=== PATIENT | male | born 1935 | race Caucasian/White ===

== ENCOUNTER → 2016-02-27 | Outpatient (REF) | payer MEDICARE ==
[2016-02-27 18:23] LABS: ALBUMIN 3.9 GM/DL (3.2-5.2); ALKALINE PHOSPHATASE 77 U/L (45-117); ALT/SGPT 23 U/L (12-78); ANION GAP 7 MEQ/L (8-16); AST/SGOT 17 U/L (15-37); BILIRUBIN,TOTAL 0.6 MG/DL (0.2-1.0); BLOOD UREA NITROGEN 16 MG/DL (7-18); CALCIUM LEVEL 9.1 MG/DL (8.8-10.2); CARBON DIOXIDE LEVEL 28 MEQ/L (21-32); CHLORIDE LEVEL 109 MEQ/L (98-107); CHOLESTEROL LEVEL 169 MG/DL (<200); CREATININE FOR GFR 1.18 MG/DL (0.70-1.30); GLOMERULAR FILTRATION RATE > 60.0 (>42); GLUCOSE, FASTING 105 MG/DL (83-110); POTASSIUM SERUM 4.4 MEQ/L (3.5-5.1); SODIUM LEVEL 144 MEQ/L (136-145); TOTAL PROTEIN 6.5 GM/DL (6.4-8.2); TRIGLYCERIDES LEVEL 165 MG/DL (<150)
[2016-02-27 18:30] LABS: BASO % 0.5 % (0.0-1.0); EOS # 0.4 K/mm3 (0.0-0.50); EOS % 5.6 % (0.0-3.0); LARGE UNSTAINED CELL # 0.2 K/mm3 (0.0-0.4); LARGE UNSTAINED CELL % 2.8 % (0.0-4.0); LYMPH # 1.9 K/mm3 (1.5-4.5); LYMPH % 31.1 % (24.0-44.0); MEAN CORPUSCULAR HEMOGLOBIN 31.3 pg (27.0-33.0); MEAN CORPUSCULAR HGB CONC 34.4 g/dl (32.0-36.5); MONO # 0.5 K/mm3 (0.0-0.8); MONO % 8.4 % (0.0-5.0); NEUTROPHILS # 3.2 K/mm3 (1.8-7.7); NEUTROPHILS % 51.7 % (36.0-66.0); PLATELET COUNT, AUTOMATED 200 k/mm3 (150-450); RED CELL DISTRIBUTION WIDTH 11.9 % (11.5-14.5); WHITE BLOOD COUNT 6.2 K/mm3 (4.0-10.0)
== END ==
LOC: M SFHCCAPE 08:41
PROVIDERS: ATTEND Physician Assistant
DX: I10 Essential (primary) hypertension (principal); E78.00 Pure hypercholesterolemia, unspecified

== ENCOUNTER → 2016-08-27 | Outpatient (REF) | payer MEDICARE ==
[2016-08-27 17:07] LABS: BASO # 0.1 K/mm3 (0.0-0.2); BASO % 1.1 % (0.0-1.0); EOS # 0.2 K/mm3 (0.0-0.50); LARGE UNSTAINED CELL # 0.1 K/mm3 (0.0-0.4); LARGE UNSTAINED CELL % 1.7 % (0.0-4.0); LYMPH % 32.7 % (24.0-44.0); MEAN CORPUSCULAR HEMOGLOBIN 31.3 pg (27.0-33.0); MEAN CORPUSCULAR HGB CONC 34.1 g/dl (32.0-36.5); MEAN CORPUSCULAR VOLUME 91.8 fl (80.0-96.0); MONO # 0.4 K/mm3 (0.0-0.8); MONO % 6.8 % (0.0-5.0); NEUTROPHILS # 3.3 K/mm3 (1.8-7.7); NEUTROPHILS % 54.7 % (36.0-66.0); PLATELET COUNT, AUTOMATED 207 k/mm3 (150-450); RED CELL DISTRIBUTION WIDTH 12.5 % (11.5-14.5)
[2016-08-27 17:53] LABS: ALBUMIN 3.9 GM/DL (3.2-5.2); ALBUMIN/GLOBULIN RATIO 1.5 (1.00-1.93); BILIRUBIN,TOTAL 0.7 MG/DL (0.2-1.0); CALCIUM LEVEL 9.2 MG/DL (8.8-10.2); CREATININE FOR GFR 1.27 MG/DL (0.70-1.30); GLOMERULAR FILTRATION RATE 58.1 (>35); POTASSIUM SERUM 4.7 MEQ/L (3.5-5.1); TOTAL PROTEIN 6.5 GM/DL (6.4-8.2)
== END ==
LOC: M SFHCCAPE 09:43
PROVIDERS: ATTEND Physician Assistant
DX: I10 Essential (primary) hypertension (principal); E66.9 Obesity, unspecified; E78.00 Pure hypercholesterolemia, unspecified; Z79.899 Other long term (current) drug therapy

== ENCOUNTER → 2017-06-17 | Outpatient (REF) | payer MEDICARE ==
[2017-06-17 18:27] LABS: BASO # 0.1 10^3/uL (0.0-0.2); BASO % 0.8 % (0.0-1.0); EOS # 0.2 10^3/uL (0.0-0.50); EOS % 3.3 % (0.0-3.0); HEMOGLOBIN 15.3 g/dl (13.5-17.5); IMMATURE GRANULOCYTE % 0.3 % (0-3.0); LYMPH % 32.2 % (24.0-44.0); MEAN CORPUSCULAR HEMOGLOBIN 31.2 pg (27.0-33.0); MEAN CORPUSCULAR VOLUME 91.6 fl (80.0-96.0); MONO # 0.6 10^3/uL (0.0-0.8); MONO % 9.6 % (0.0-5.0); NEUTROPHILS # 3.4 10^3/uL (1.8-7.7); NEUTROPHILS % 53.8 % (36.0-66.0); PLATELET COUNT, AUTOMATED 191 10^3/uL (150-450); RED BLOOD COUNT 4.91 10^6/uL (4.30-6.10); RED CELL DISTRIBUTION WIDTH 12.4 % (11.5-14.5); WHITE BLOOD COUNT 6.3 10^3/uL (4.0-10.0)
[2017-06-17 18:49] LABS: ALBUMIN 4.2 GM/DL (3.2-5.2); ALBUMIN/GLOBULIN RATIO 1.56 (1.00-1.93); ALKALINE PHOSPHATASE 70 U/L (45-117); ALT/SGPT 25 U/L (12-78); ANION GAP 7 MEQ/L (8-16); AST/SGOT 20 U/L (7-37); BILIRUBIN,TOTAL 0.6 MG/DL (0.2-1.0); BLOOD UREA NITROGEN 17 MG/DL (7-18); CALCIUM LEVEL 9.1 MG/DL (8.8-10.2); CARBON DIOXIDE LEVEL 26 MEQ/L (21-32); CHLORIDE LEVEL 110 MEQ/L (98-107); CHOLESTEROL LEVEL 147 MG/DL (<200); CREATININE FOR GFR 1.19 MG/DL (0.70-1.30); GLOMERULAR FILTRATION RATE > 60.0 (>35); GLUCOSE, FASTING 103 MG/DL (70-100); HDL CHOLESTEROL 42 MG/DL (>40); LDL CHOLESTEROL 73.6 MG/DL (<100); NON-HDL-C 105 MG/DL; POTASSIUM SERUM 4.6 MEQ/L (3.5-5.1); PSA SCREENING 1.32 NG/ML (< 4.0); SODIUM LEVEL 143 MEQ/L (136-145); TOTAL PROTEIN 6.9 GM/DL (6.4-8.2); TRIGLYCERIDES LEVEL 157 MG/DL (<150)
== END ==
LOC: M SFHCCAPE 08:39
DX: K59.00 Constipation, unspecified (principal); E78.00 Pure hypercholesterolemia, unspecified; R39.11 Hesitancy of micturition
CPT/HCPCS: 84443

== ENCOUNTER → 2018-01-27 | Outpatient (REF) | payer MEDICARE ==
[2018-01-27 17:08] LABS: ALKALINE PHOSPHATASE 62 U/L (45-117); ALT/SGPT 24 U/L (12-78); ANION GAP 7 MEQ/L (8-16); AST/SGOT 18 U/L (7-37); BILIRUBIN,TOTAL 0.6 MG/DL (0.2-1.0); BLOOD UREA NITROGEN 18 MG/DL (7-18); CALCIUM LEVEL 9.3 MG/DL (8.8-10.2); CARBON DIOXIDE LEVEL 29 MEQ/L (21-32); CHLORIDE LEVEL 105 MEQ/L (98-107); CHOLESTEROL LEVEL 163 MG/DL (<200); CHOLESTEROL RISK RATIO 3.622 (<5); CREATININE FOR GFR 1.06 MG/DL (0.70-1.30); GLOMERULAR FILTRATION RATE > 60.0 (>35); GLUCOSE, FASTING 98 MG/DL (70-100); HDL CHOLESTEROL 45 MG/DL (>40); LDL CHOLESTEROL 85 MG/DL (<100); NON-HDL-C 118 MG/DL; POTASSIUM SERUM 4.5 MEQ/L (3.5-5.1); SODIUM LEVEL 141 MEQ/L (136-145); TOTAL PROTEIN 6.5 GM/DL (6.4-8.2); TRIGLYCERIDES LEVEL 164 MG/DL (<150)
[2018-01-27 17:11] LABS: BASO % 0.7 % (0.0-1.0); EOS # 0.1 10^3/uL (0.0-0.50); EOS % 2.1 % (0.0-3.0); HEMATOCRIT 43.9 % (42.0-52.0); HEMOGLOBIN 14.6 g/dl (13.5-17.5); IMMATURE GRANULOCYTE % 0.2 % (0-3.0); LYMPH # 1.6 10^3/uL (1.5-4.5); LYMPH % 28.2 % (24.0-44.0); MEAN CORPUSCULAR HEMOGLOBIN 31.7 pg (27.0-33.0); MEAN CORPUSCULAR HGB CONC 33.3 g/dl (32.0-36.5); MEAN CORPUSCULAR VOLUME 95.2 fl (80.0-96.0); MONO # 0.5 10^3/uL (0.0-0.8); MONO % 8.4 % (0.0-5.0); NEUTROPHILS # 3.5 10^3/uL (1.8-7.7); NEUTROPHILS % 60.4 % (36.0-66.0); PLATELET COUNT, AUTOMATED 204 10^3/uL (150-450); RED BLOOD COUNT 4.61 10^6/uL (4.30-6.10); RED CELL DISTRIBUTION WIDTH 12.2 % (11.5-14.5); WHITE BLOOD COUNT 5.8 10^3/uL (4.0-10.0)
[2018-01-27 17:15] LABS: ESTIMATED AVERAGE GLUCOSE 111 MG/DL (60-110); HEMOGLOBIN A1c 5.5 %
== END ==
LOC: M SFHCCAPE 10:38
DX: E78.00 Pure hypercholesterolemia, unspecified (principal); R73.01 Impaired fasting glucose
CPT/HCPCS: 84443

== ENCOUNTER → 2019-03-08 | Outpatient (REF) | payer MEDICARE ==
[2019-03-08 16:31] LABS: BASO # 0.1 10^3/uL (0.0-0.2); BASO % 0.7 % (0.0-1.0); EOS # 0.2 10^3/uL (0.0-0.5); EOS % 2.1 % (0.0-3.0); HEMATOCRIT 46.6 % (42.0-52.0); HEMOGLOBIN 14.9 g/dl (13.5-17.5); LYMPH # 1.7 10^3/uL (1.5-5.0); LYMPH % 23.6 % (24.0-44.0); MEAN CORPUSCULAR HEMOGLOBIN 30.7 pg (27.0-33.0); MEAN CORPUSCULAR VOLUME 96.1 fl (80.0-96.0); MONO # 0.6 10^3/uL (0.0-0.8); MONO % 8.8 % (0.0-5.0); NEUTROPHILS # 4.5 10^3/uL (1.5-8.5); NEUTROPHILS % 64.4 % (36.0-66.0); PLATELET COUNT, AUTOMATED 189 10^3/uL (150-450); RED BLOOD COUNT 4.85 10^6/uL (4.30-6.10)
[2019-03-08 16:45] LABS: ALBUMIN 4.2 GM/DL (3.2-5.2); BILIRUBIN,TOTAL 0.5 MG/DL (0.2-1.0); CALCIUM LEVEL 8.9 MG/DL (8.8-10.2); CHOLESTEROL RISK RATIO 4.27 (<5); CREATININE FOR GFR 1.34 MG/DL (0.70-1.30); GLOMERULAR FILTRATION RATE 54.3 (>35); POTASSIUM SERUM 5.3 MEQ/L (3.5-5.1); THYROID STIMULATING HORMONE 1.34 uIU/ML (0.358-3.740); TOTAL PROTEIN 6.7 GM/DL (6.4-8.2)
[2019-03-08 16:48] LABS: HEMOGLOBIN A1c 5.7 %
== END ==
LOC: M SFHCCAPE 11:32
PROVIDERS: ATTEND Nurse Practitioner Family
DX: I10 Essential (primary) hypertension (principal); Z79.899 Other long term (current) drug therapy

== ENCOUNTER → 2020-06-06 | Outpatient (REF) | payer MEDICARE ==
[2020-06-06 16:26] LABS: HEMATOCRIT 45.1 % (42.0-52.0); HEMOGLOBIN 14.5 g/dl (13.5-17.5); MEAN CORPUSCULAR HGB CONC 32.2 g/dl (32.0-36.5); MEAN CORPUSCULAR VOLUME 96.4 fl (80.0-96.0); PLATELET COUNT, AUTOMATED 202 10^3/uL (150-450); RED BLOOD COUNT 4.68 10^6/uL (4.30-6.10); WHITE BLOOD COUNT 6.8 10^3/uL (4.0-10.0)
[2020-06-06 17:05] LABS: ALBUMIN 4.1 GM/DL (3.2-5.2); BILIRUBIN,TOTAL 0.4 MG/DL (0.2-1.0); CALCIUM LEVEL 9.5 MG/DL (8.8-10.2); CHOLESTEROL RISK RATIO 3.214 (<5); CREATININE FOR GFR 1.36 MG/DL (0.70-1.30); GLOMERULAR FILTRATION RATE 53.1 (>35); POTASSIUM SERUM 4.7 MEQ/L (3.5-5.1); TOTAL PROTEIN 6.5 GM/DL (6.4-8.2)
== END ==
LOC: M LAB REF 15:56
PROVIDERS: ATTEND Physician Assistant
DX: I25.10 Atherosclerotic heart disease of native coronary artery without angina pectoris (principal); I11.9 Hypertensive heart disease without heart failure; E78.2 Mixed hyperlipidemia

== ENCOUNTER → 2020-06-06 | Outpatient (REF) | payer MEDICARE ==
[2020-06-06 16:45] LABS: HEMOGLOBIN A1c 5.3 %
== END ==
LOC: M SFHCCAPE 08:41
PROVIDERS: ATTEND Physician Assistant
DX: R73.01 Impaired fasting glucose (principal); Z79.899 Other long term (current) drug therapy

== ENCOUNTER → 2021-04-01 | Outpatient (REF) | payer MEDICARE ==
[2021-04-01 16:57] LABS: HEMATOCRIT 44.9 % (42.0-52.0); HEMOGLOBIN 14.6 g/dl (13.5-17.5); MEAN CORPUSCULAR HEMOGLOBIN 31.1 pg (27.0-33.0); MEAN CORPUSCULAR HGB CONC 32.5 g/dl (32.0-36.5); MEAN CORPUSCULAR VOLUME 95.5 fl (80.0-96.0); PLATELET COUNT, AUTOMATED 173 10^3/uL (150-450); WHITE BLOOD COUNT 5.9 10^3/uL (4.0-10.0)
[2021-04-01 17:23] LABS: ALBUMIN 4.2 GM/DL (3.2-5.2); ALT/SGPT 19 U/L (12-78); BILIRUBIN,TOTAL 0.7 MG/DL (0.2-1.0); BLOOD UREA NITROGEN 20 MG/DL (7-18); CALCIUM LEVEL 9.5 MG/DL (8.8-10.2); CARBON DIOXIDE LEVEL 27 MEQ/L (21-32); CHLORIDE LEVEL 108 MEQ/L (98-107); CHOLESTEROL LEVEL 140 MG/DL (<200); CHOLESTEROL RISK RATIO 2.978 (<5); CREATININE FOR GFR 1.16 MG/DL (0.70-1.30); GLOMERULAR FILTRATION RATE > 60.0 (>35); GLUCOSE, FASTING 96 MG/DL (70-100); HDL CHOLESTEROL 47 MG/DL (>40); LDL CHOLESTEROL 71 MG/DL (<100); NON-HDL-C 93 MG/DL; POTASSIUM SERUM 4.3 MEQ/L (3.5-5.1); SODIUM LEVEL 142 MEQ/L (136-145); TOTAL PROTEIN 6.7 GM/DL (6.4-8.2); TRIGLYCERIDES LEVEL 109 MG/DL (<150)
== END ==
LOC: M LAB REF 16:09 → M LABDRWCV 16:09
PROVIDERS: ATTEND Physician Assistant
DX: I25.10 Atherosclerotic heart disease of native coronary artery without angina pectoris (principal); I11.9 Hypertensive heart disease without heart failure; E78.2 Mixed hyperlipidemia

== ENCOUNTER 2021-08-27 12:32 | Observation (INO) | payer MEDICARE ==
[~2021-08-27] VITALS: Ht 177.8 cm; Wt 88.1 kg
[2021-08-27 13:06] LABS: VENOUS BASE EXCESS -0.5 (-2.0-2.0); VENOUS HCO3 25.6 MEQ/L (23.0-27.0); VENOUS O2 SATURATION 72.6 % (60.0-80.0); VENOUS PARTIAL PRESSURE CO2 47.4 mmHg (38.0-50.0); VENOUS STANDARD HCO3 23.4 MEQ/L
[2021-08-27 13:10] LABS: BASO # 0.1 10^3/uL (0.0-0.2); BASO % 0.6 % (0.0-1.0); EOS # 0.1 10^3/uL (0.0-0.5); EOS % 0.5 % (0.0-3.0); HEMATOCRIT 42.4 % (42.0-52.0); LYMPH # 1.2 10^3/uL (1.5-5.0); LYMPH % 10.9 % (24.0-44.0); MEAN CORPUSCULAR HEMOGLOBIN 30.8 pg (27.0-33.0); MEAN CORPUSCULAR VOLUME 93.4 fl (80.0-96.0); MONO % 9.4 % (2.0-8.0); NEUTROPHILS # 8.5 10^3/uL (1.5-8.5); NEUTROPHILS % 77.4 % (36.0-66.0); PLATELET COUNT, AUTOMATED 170 10^3/uL (150-450); RED BLOOD COUNT 4.54 10^6/uL (4.30-6.10)
[2021-08-27] MEDS ORDERED: NS 1,000 ML IV ONE (13:15)
[2021-08-27 13:41] LABS: CALCIUM LEVEL 9.2 MG/DL (8.8-10.2); CREATININE FOR GFR 1.63 MG/DL (0.70-1.30); FREE T4 1.06 NG/DL (0.76-1.46); MAGNESIUM LEVEL 2.3 MG/DL (1.8-2.4); POTASSIUM SERUM 4.1 MEQ/L (3.5-5.1); THYROID STIMULATING HORMONE 1.39 uIU/ML (0.358-3.740)
[2021-08-27 13:58] LABS: RSV AMPLIFICATION NEGATIVE (NEGATIVE)
[2021-08-27] MEDS ORDERED: OMEP-173 PO (15:51)
[2021-08-27] MEDS ORDERED: VITA100093 PO (15:51)
[2021-08-27] MEDS ORDERED: APAP325T4 PO (15:51)
[2021-08-27] MEDS ORDERED: VITA500C24 PO (15:51)
[2021-08-27] MEDS ORDERED: GLUC1TAB58 PO (15:51)
[2021-08-27] MEDS ORDERED: ATEN25TA PO (15:51)
[2021-08-27] MEDS ORDERED: ISOS30TAB PO (15:51)
[2021-08-27] MEDS ORDERED: LOVA20TA2 PO (15:51)
[2021-08-27] MEDS ORDERED: LISI5TAB11 PO (15:51)
[2021-08-27] MEDS ORDERED: HOME MED LIST COMPLETE! XX SCH (16:00)
[2021-08-27] MEDS ORDERED: **hydrALAZINE HCL** 25 MG TAB PO PRN (16:20)
[2021-08-27] MEDS ORDERED: ACETAMINOPHEN TAB 650MG DOSE (2X325MG) PO PRN (16:20)
[2021-08-27] MEDS: ISOSORBIDE DIN. (ISORDIL) 30 MG TAB PO SCH (19:04)
[2021-08-27] MEDS ORDERED: atenoloL 25 MG TAB PO SCH (21:00)
[2021-08-28] MEDS: ISOSORBIDE DIN. (ISORDIL) 30 MG TAB PO SCH ×2 (00:43→09:49)
[2021-08-28 06:53] LABS: HEMATOCRIT 40.1 % (42.0-52.0); HEMOGLOBIN 13.7 g/dl (13.5-17.5); MEAN CORPUSCULAR HGB CONC 34.2 g/dl (32.0-36.5); MEAN CORPUSCULAR VOLUME 93.7 fl (80.0-96.0); RED BLOOD COUNT 4.28 10^6/uL (4.30-6.10); WHITE BLOOD COUNT 7.5 10^3/uL (4.0-10.0)
[2021-08-28 07:09] LABS: BLOOD UREA NITROGEN 15 MG/DL (7-18); CALCIUM LEVEL 9.1 MG/DL (8.8-10.2); CARBON DIOXIDE LEVEL 29 MEQ/L (21-32); CHLORIDE LEVEL 110 MEQ/L (98-107); GLOMERULAR FILTRATION RATE > 60.0 (>35); GLUCOSE, FASTING 103 MG/DL (70-100); POTASSIUM SERUM 4.3 MEQ/L (3.5-5.1); SODIUM LEVEL 141 MEQ/L (136-145)
[2021-08-28 08:00] VITALS: BP 182/81
[2021-08-28 08:30] VITALS: BP 171/79
[2021-08-28] MEDS ORDERED: SIMVASTATIN 20 MG TAB PO SCH (09:00)
[2021-08-28] MEDS ORDERED: VITAMIN D 1,000 INTERNATIONAL UNITS TABLET PO SCH (09:00)
[2021-08-28] MEDS ORDERED: OMEPRAZOLE 20MG CAP PO SCH (09:00)
[2021-08-28] MEDS ORDERED: ASCORBIC ACID 500 MG TAB PO SCH (09:00)
[2021-08-28 09:49] VITALS: BP 171/79
== END 2021-08-28 13:08 | disposition home or self-care (01) ==
LOC: M ED 12:32 → EDBD 12:32 → M ED INP 16:18
PROVIDERS: ADMIT Internal Medicine; ATTEND Internal Medicine
DX: R55 Syncope and collapse (principal); N17.9 Acute kidney failure, unspecified; I10 Essential (primary) hypertension; I25.10 Atherosclerotic heart disease of native coronary artery without angina pectoris; Z98.61 Coronary angioplasty status; K21.9 Gastro-esophageal reflux disease without esophagitis; Z79.899 Other long term (current) drug therapy
CPT/HCPCS: 36415; 70450; 71045; 72125; 76775; 80048; 82803; 83735; 84439; 84443; 85025; 85027; 87631; 93005; 93041; 93306; 94760; 96374; 97161; 97530; 99285; G0378

== ENCOUNTER → 2021-10-02 | Outpatient (REF) | payer MEDICARE ==
[~2021-10-02] MED LIST: APAP325T4 PO; ATEN25TA PO; GLUC1TAB58 PO; ISOS30TAB PO; LISI5TAB11 PO; LOVA20TA2 PO; OMEP-173 PO; VITA100093 PO; VITA500C24 PO
[2021-10-02 17:53] LABS: BASO # 0.1 10^3/uL (0.0-0.2); BASO % 1.1 % (0.0-1.0); EOS # 0.1 10^3/uL (0.0-0.5); EOS % 1.5 % (0.0-3.0); HEMATOCRIT 37.7 % (42.0-52.0); HEMOGLOBIN 12.9 g/dl (13.5-17.5); LYMPH # 1.8 10^3/uL (1.5-5.0); LYMPH % 26.6 % (24.0-44.0); MEAN CORPUSCULAR HEMOGLOBIN 32.5 pg (27.0-33.0); MEAN CORPUSCULAR HGB CONC 34.2 g/dl (32.0-36.5); MONO # 0.5 10^3/uL (0.0-0.8); MONO % 7.6 % (2.0-8.0); NEUTROPHILS # 4.2 10^3/uL (1.5-8.5); NEUTROPHILS % 62.9 % (36.0-66.0); PLATELET COUNT, AUTOMATED 183 10^3/uL (150-450); RED BLOOD COUNT 3.97 10^6/uL (4.30-6.10); WHITE BLOOD COUNT 6.6 10^3/uL (4.0-10.0)
[2021-10-02 18:19] LABS: ALBUMIN 3.8 GM/DL (3.2-5.2); BILIRUBIN,TOTAL 0.8 MG/DL (0.2-1.0); CALCIUM LEVEL 9.5 MG/DL (8.8-10.2); CHOLESTEROL RISK RATIO 2.702 (<5); CREATININE FOR GFR 1.27 MG/DL (0.70-1.30); GLOMERULAR FILTRATION RATE 57.4 (>35); POTASSIUM SERUM 4.3 MEQ/L (3.5-5.1); THYROID STIMULATING HORMONE 2.22 uIU/ML (0.358-3.740)
[2021-10-02 19:41] LABS: HEMOGLOBIN A1c 5.1 %
== END ==
LOC: M SFHCCAPE 10:07
PROVIDERS: ATTEND Physician Assistant
DX: Z00.00 Encounter for general adult medical examination without abnormal findings (principal); Z79.899 Other long term (current) drug therapy

== ENCOUNTER → 2022-05-06 | Outpatient (REF) | payer MEDICARE ==
[2022-05-06 18:22] LABS: BLOOD UREA NITROGEN 17 MG/DL (9-23); CALCIUM LEVEL 9.6 MG/DL (8.3-10.6); CARBON DIOXIDE LEVEL 28 MMOL/L (20-31); CHLORIDE LEVEL 106 MMOL/L (98-107); GLOMERULAR FILTRATION RATE > 60.0 (>35); GLUCOSE, FASTING 95 MG/DL (74-106); POTASSIUM SERUM 4.3 MMOL/L (3.5-5.1); SODIUM LEVEL 141 MMOL/L (136-145)
== END ==
LOC: M LABDRWCV 17:02
PROVIDERS: ATTEND Physician Assistant
DX: I11.9 Hypertensive heart disease without heart failure (principal)

== ENCOUNTER 2022-06-20 08:36 | Observation (INO) | payer MEDICARE ==
[~2022-06-20] VITALS: Ht 177.8 cm; Wt 85.0 kg
[2022-06-20 09:29] LABS: BASO # 0.1 10^3/uL (0.0-0.2); BASO % 0.9 % (0.0-1.0); EOS # 0.2 10^3/uL (0.0-0.5); EOS % 2.1 % (0.0-3.0); HEMATOCRIT 40.8 % (42.0-52.0); HEMOGLOBIN 13.5 g/dl (13.5-17.5); LYMPH # 1.6 10^3/uL (1.5-5.0); LYMPH % 21.1 % (24.0-44.0); MEAN CORPUSCULAR HEMOGLOBIN 31.6 pg (27.0-33.0); MEAN CORPUSCULAR HGB CONC 33.1 g/dl (32.0-36.5); MEAN CORPUSCULAR VOLUME 95.6 fl (80.0-96.0); MONO # 0.7 10^3/uL (0.0-0.8); MONO % 9.5 % (2.0-8.0); NEUTROPHILS # 5.1 10^3/uL (1.5-8.5); PLATELET COUNT, AUTOMATED 188 10^3/uL (150-450); RED BLOOD COUNT 4.27 10^6/uL (4.30-6.10); WHITE BLOOD COUNT 7.7 10^3/uL (4.0-10.0)
[2022-06-20 09:45] LABS: LIPASE 22 U/L (12-53)
[2022-06-20 09:47] LABS: CK-MB VALUE MASS 2.6 NG/ML (<3.6); CPK CREATINE PHOSPHOKINASE 342 U/L (46-171); MB/CK RELATIVE INDEX 0.76 (< OR =4)
[2022-06-20 09:48] LABS: ALBUMIN 3.9 G/DL (3.2-5.2); ALKALINE PHOSPHATASE 67 U/L (46-116); ALT/SGPT 21 U/L (7.0-40); AST/SGOT 31 U/L (<34); BILIRUBIN,DIRECT 0.4 MG/DL (<0.4); BILIRUBIN,TOTAL 1.1 MG/DL (0.3-1.2); BLOOD UREA NITROGEN 23 MG/DL (9-23); CALCIUM LEVEL 9.3 MG/DL (8.3-10.6); CARBON DIOXIDE LEVEL 30 MMOL/L (20-31); CHLORIDE LEVEL 106 MMOL/L (98-107); CREATININE FOR GFR 1.18 MG/DL (0.70-1.30); GLOMERULAR FILTRATION RATE > 60.0 (>35); GLUCOSE, FASTING 109 MG/DL (74-106); POTASSIUM SERUM 4.5 MMOL/L (3.5-5.1); SODIUM LEVEL 140 MMOL/L (136-145); TOTAL PROTEIN 6.4 G/DL (5.7-8.2)
[2022-06-20] MEDS ORDERED: hydrALAZINE 20MG/ML 1ML VIAL IV ONE (10:35)
[2022-06-20] MEDS ORDERED: atenoloL 25 MG TAB PO ONE (10:40)
[2022-06-20 11:11] LABS: CK-MB VALUE MASS 2.2 NG/ML (<3.6)
[2022-06-20 11:24] LABS: MB/CK RELATIVE INDEX 0.71 (< OR =4)
[2022-06-20] MEDS ORDERED: HOME MED LIST COMPLETE! XX SCH (13:05)
[2022-06-20 14:07] LABS: INR 1.02; PROTHROMBIN TIME 13.6 SECONDS (12.5-14.5)
[2022-06-20 14:08] LABS: PARTIAL THROMBOPLASTIN TIME 35.4 SECONDS (24.8-34.2)
[2022-06-20] MEDS: HEPARIN SOD (PORCINE) 5000UNITS/ML 1ML VIAL/SYRINGE SC SCH ×2 (14:36→22:31)
[2022-06-20 16:38] VITALS: BP 185/90
[2022-06-20] MEDS: ISOSORBIDE DIN. (ISORDIL) 30 MG TAB PO SCH ×2 (16:48→20:23)
[2022-06-20] MEDS: OMEPRAZOLE 20MG CAP PO SCH (16:49)
[2022-06-20] MEDS: SIMVASTATIN 20 MG TAB PO SCH (16:49)
[2022-06-20] MEDS: lisinopriL 5 MG TAB PO SCH (16:49)
[2022-06-20] MEDS: VITAMIN D 1,000 INTERNATIONAL UNITS TABLET PO SCH (16:49)
[2022-06-20] MEDS ORDERED: hydrALAZINE 20MG/ML 1ML VIAL IV PRN (16:55)
[2022-06-20 18:15] VITALS: BP 139/90
[2022-06-20 19:25] VITALS: BP 115/51
[2022-06-20] MEDS: ATENOLOL 12.5MG PER 1/2 TABLET PO SCH (20:23)
[2022-06-20 23:29] VITALS: BP 111/56
[2022-06-21 03:26] VITALS: BP 152/68
[2022-06-21] MEDS ORDERED: ONDANSETRON 4MG 2ML VIAL IV PRN ×2 (05:00→09:55)
[2022-06-21] MEDS: HEPARIN SOD (PORCINE) 5000UNITS/ML 1ML VIAL/SYRINGE SC SCH ×3 (05:24→21:34)
[2022-06-21 08:45] VITALS: BP 113/58
[2022-06-21] MEDS: ASPIRIN 81MG ENTERIC TABLET PO SCH (08:52)
[2022-06-21] MEDS: ISOSORBIDE DIN. (ISORDIL) 30 MG TAB PO SCH ×3 (08:53→21:34)
[2022-06-21] MEDS: OMEPRAZOLE 20MG CAP PO SCH (08:53)
[2022-06-21] MEDS: lisinopriL 5 MG TAB PO SCH (08:53)
[2022-06-21] MEDS: VITAMIN D 1,000 INTERNATIONAL UNITS TABLET PO SCH (08:53)
[2022-06-21 11:57] VITALS: BP 135/60
[2022-06-21] MEDS: SIMVASTATIN 20 MG TAB PO SCH (18:44)
[2022-06-21 19:25] VITALS: BP 128/60
[2022-06-21] MEDS: ATENOLOL 12.5MG PER 1/2 TABLET PO SCH (21:34)
[2022-06-21 23:25] VITALS: BP 125/64
[2022-06-22] VITALS (7 sets, daily range): BP systolic 140–189; BP diastolic 60–88
[2022-06-22] MEDS: HEPARIN SOD (PORCINE) 5000UNITS/ML 1ML VIAL/SYRINGE SC SCH ×3 (05:28→22:24)
[2022-06-22] MEDS: lisinopriL 5 MG TAB PO SCH (09:43)
[2022-06-22] MEDS: ASPIRIN 81MG ENTERIC TABLET PO SCH (09:43)
[2022-06-22] MEDS: ISOSORBIDE DIN. (ISORDIL) 30 MG TAB PO SCH ×3 (09:43→20:09)
[2022-06-22] MEDS: VITAMIN D 1,000 INTERNATIONAL UNITS TABLET PO SCH (09:44)
[2022-06-22] MEDS: OMEPRAZOLE 20MG CAP PO SCH (09:44)
[2022-06-22] MEDS: SIMVASTATIN 20 MG TAB PO SCH (17:33)
[2022-06-22] MEDS: ATENOLOL 12.5MG PER 1/2 TABLET PO SCH (20:09)
[2022-06-23] MEDS ORDERED: NS 1,000 ML IV ONE (05:45)
[2022-06-23] MEDS: HEPARIN SOD (PORCINE) 5000UNITS/ML 1ML VIAL/SYRINGE SC SCH ×3 (05:52→21:34)
[2022-06-23 06:13] LABS: BASO # 0.1 10^3/uL (0.0-0.2); BASO % 0.8 % (0.0-1.0); EOS # 0.2 10^3/uL (0.0-0.5); EOS % 2.5 % (0.0-3.0); HEMOGLOBIN 11.2 g/dl (13.5-17.5); LYMPH # 1.9 10^3/uL (1.5-5.0); LYMPH % 32.1 % (24.0-44.0); MEAN CORPUSCULAR HEMOGLOBIN 31.9 pg (27.0-33.0); MEAN CORPUSCULAR HGB CONC 33.9 g/dl (32.0-36.5); MONO # 0.6 10^3/uL (0.0-0.8); MONO % 10.4 % (2.0-8.0); NEUTROPHILS # 3.2 10^3/uL (1.5-8.5); NEUTROPHILS % 53.5 % (36.0-66.0); PLATELET COUNT, AUTOMATED 165 10^3/uL (150-450); RED BLOOD COUNT 3.51 10^6/uL (4.30-6.10)
[2022-06-23 06:49] LABS: ALKALINE PHOSPHATASE 60 U/L (46-116); ALT/SGPT 19 U/L (7.0-40); AST/SGOT 20 U/L (<34); BILIRUBIN,TOTAL 0.6 MG/DL (0.3-1.2); BLOOD UREA NITROGEN 20 MG/DL (9-23); CALCIUM LEVEL 8.9 MG/DL (8.3-10.6); CARBON DIOXIDE LEVEL 27 MMOL/L (20-31); CHLORIDE LEVEL 107 MMOL/L (98-107); CREATININE FOR GFR 0.99 MG/DL (0.70-1.30); GLOMERULAR FILTRATION RATE > 60.0 (>35); GLUCOSE, FASTING 100 MG/DL (74-106); MAGNESIUM LEVEL 1.9 MG/DL (1.8-2.4); POTASSIUM SERUM 4.5 MMOL/L (3.5-5.1); SODIUM LEVEL 139 MMOL/L (136-145); TOTAL PROTEIN 4.7 G/DL (5.7-8.2)
[2022-06-23 07:39] VITALS: BP 135/58
[2022-06-23] MEDS: OMEPRAZOLE 20MG CAP PO SCH (08:49)
[2022-06-23] MEDS: ASPIRIN 81MG ENTERIC TABLET PO SCH (08:49)
[2022-06-23] MEDS: VITAMIN D 1,000 INTERNATIONAL UNITS TABLET PO SCH (08:49)
[2022-06-23] MEDS: lisinopriL 5 MG TAB PO SCH (08:50)
[2022-06-23] MEDS: ISOSORBIDE DIN. (ISORDIL) 30 MG TAB PO SCH ×3 (08:50→20:01)
[2022-06-23 14:00] VITALS: BP 146/60
[2022-06-23] MEDS: SIMVASTATIN 20 MG TAB PO SCH (17:35)
[2022-06-23] MEDS: ATENOLOL 12.5MG PER 1/2 TABLET PO SCH (20:01)
[2022-06-23 20:08] VITALS: BP 102/61
[2022-06-24 04:40] VITALS: BP 128/62
[2022-06-24] MEDS: HEPARIN SOD (PORCINE) 5000UNITS/ML 1ML VIAL/SYRINGE SC SCH ×3 (05:53→22:09)
[2022-06-24] MEDS: ISOSORBIDE DIN. (ISORDIL) 30 MG TAB PO SCH ×3 (09:00→22:10)
[2022-06-24] MEDS: OMEPRAZOLE 20MG CAP PO SCH (09:43)
[2022-06-24] MEDS: VITAMIN D 1,000 INTERNATIONAL UNITS TABLET PO SCH (09:43)
[2022-06-24] MEDS: ASPIRIN 81MG ENTERIC TABLET PO SCH (09:43)
[2022-06-24] MEDS: SIMVASTATIN 20 MG TAB PO SCH (18:30)
[2022-06-24] MEDS: ATENOLOL 12.5MG PER 1/2 TABLET PO SCH (22:10)
[2022-06-25 05:10] VITALS: BP 133/65
[2022-06-25] MEDS: HEPARIN SOD (PORCINE) 5000UNITS/ML 1ML VIAL/SYRINGE SC SCH ×3 (05:17→21:23)
[2022-06-25] MEDS: ISOSORBIDE DIN. (ISORDIL) 30 MG TAB PO SCH ×3 (09:14→21:31)
[2022-06-25] MEDS: ASPIRIN 81MG ENTERIC TABLET PO SCH (09:14)
[2022-06-25] MEDS: VITAMIN D 1,000 INTERNATIONAL UNITS TABLET PO SCH (09:15)
[2022-06-25] MEDS: OMEPRAZOLE 20MG CAP PO SCH (09:15)
[2022-06-25] MEDS: SIMVASTATIN 20 MG TAB PO SCH (16:17)
[2022-06-25] MEDS: ATENOLOL 12.5MG PER 1/2 TABLET PO SCH (21:00)
[2022-06-25 21:30] VITALS: BP 118/44
[2022-06-25 22:30] VITALS: BP 118/45
[2022-06-26] MEDS: HEPARIN SOD (PORCINE) 5000UNITS/ML 1ML VIAL/SYRINGE SC SCH ×3 (05:26→20:15)
[2022-06-26 05:50] VITALS: BP 136/63
[2022-06-26] MEDS: VITAMIN D 1,000 INTERNATIONAL UNITS TABLET PO SCH (11:40)
[2022-06-26] MEDS: OMEPRAZOLE 20MG CAP PO SCH (11:40)
[2022-06-26] MEDS: ASPIRIN 81MG ENTERIC TABLET PO SCH (11:41)
[2022-06-26] MEDS: ISOSORBIDE DIN. (ISORDIL) 30 MG TAB PO SCH ×3 (11:43→20:14)
[2022-06-26] MEDS: SIMVASTATIN 20 MG TAB PO SCH (19:02)
[2022-06-26] MEDS: ATENOLOL 12.5MG PER 1/2 TABLET PO SCH (20:14)
[2022-06-27 05:32] VITALS: BP 125/52
[2022-06-27] MEDS: HEPARIN SOD (PORCINE) 5000UNITS/ML 1ML VIAL/SYRINGE SC SCH ×3 (05:47→20:20)
[2022-06-27] MEDS: ASPIRIN 81MG ENTERIC TABLET PO SCH (09:54)
[2022-06-27] MEDS: OMEPRAZOLE 20MG CAP PO SCH (09:55)
[2022-06-27] MEDS: ISOSORBIDE DIN. (ISORDIL) 30 MG TAB PO SCH ×3 (09:55→20:21)
[2022-06-27] MEDS: VITAMIN D 1,000 INTERNATIONAL UNITS TABLET PO SCH (09:55)
[2022-06-27 10:01] VITALS: BP 125/51
[2022-06-27 16:09] VITALS: BP 133/56
[2022-06-27] MEDS: SIMVASTATIN 20 MG TAB PO SCH (17:12)
[2022-06-27] MEDS: ATENOLOL 12.5MG PER 1/2 TABLET PO SCH (20:21)
[2022-06-28] MEDS: HEPARIN SOD (PORCINE) 5000UNITS/ML 1ML VIAL/SYRINGE SC SCH ×3 (05:25→21:09)
[2022-06-28 05:40] VITALS: BP 128/57
[2022-06-28] MEDS: ISOSORBIDE DIN. (ISORDIL) 30 MG TAB PO SCH ×3 (09:00→21:09)
[2022-06-28] MEDS: VITAMIN D 1,000 INTERNATIONAL UNITS TABLET PO SCH (09:26)
[2022-06-28] MEDS: OMEPRAZOLE 20MG CAP PO SCH (09:26)
[2022-06-28] MEDS: ASPIRIN 81MG ENTERIC TABLET PO SCH (09:26)
[2022-06-28 09:29] VITALS: BP 109/51
[2022-06-28 16:01] VITALS: BP 154/57
[2022-06-28] MEDS: SIMVASTATIN 20 MG TAB PO SCH (17:55)
[2022-06-28] MEDS: ATENOLOL 12.5MG PER 1/2 TABLET PO SCH (21:00)
[2022-06-29] MEDS: HEPARIN SOD (PORCINE) 5000UNITS/ML 1ML VIAL/SYRINGE SC SCH ×3 (05:54→21:49)
[2022-06-29 06:00] VITALS: BP 123/55
[2022-06-29 08:23] VITALS: BP 122/54
[2022-06-29] MEDS: OMEPRAZOLE 20MG CAP PO SCH (08:24)
[2022-06-29] MEDS: VITAMIN D 1,000 INTERNATIONAL UNITS TABLET PO SCH (08:24)
[2022-06-29] MEDS: ASPIRIN 81MG ENTERIC TABLET PO SCH (08:25)
[2022-06-29] MEDS: ISOSORBIDE DIN. (ISORDIL) 30 MG TAB PO SCH ×3 (08:25→21:07)
[2022-06-29] MEDS: SIMVASTATIN 20 MG TAB PO SCH (17:04)
[2022-06-29] MEDS: ATENOLOL 12.5MG PER 1/2 TABLET PO SCH (21:06)
[2022-06-30] MEDS: HEPARIN SOD (PORCINE) 5000UNITS/ML 1ML VIAL/SYRINGE SC SCH ×3 (05:30→21:03)
[2022-06-30 05:59] VITALS: BP 118/53
[2022-06-30] MEDS: VITAMIN D 1,000 INTERNATIONAL UNITS TABLET PO SCH (09:57)
[2022-06-30] MEDS: ASPIRIN 81MG ENTERIC TABLET PO SCH (09:57)
[2022-06-30] MEDS: OMEPRAZOLE 20MG CAP PO SCH (09:57)
[2022-06-30] MEDS: ISOSORBIDE DIN. (ISORDIL) 30 MG TAB PO SCH ×3 (09:58→21:05)
[2022-06-30] MEDS: SIMVASTATIN 20 MG TAB PO SCH (16:43)
[2022-06-30] MEDS: ATENOLOL 12.5MG PER 1/2 TABLET PO SCH (21:05)
[2022-07-01 05:43] VITALS: BP 118/56
[2022-07-01 06:00] VITALS: BP 118/56
[2022-07-01] MEDS: HEPARIN SOD (PORCINE) 5000UNITS/ML 1ML VIAL/SYRINGE SC SCH ×3 (06:10→21:07)
[2022-07-01] MEDS: ASPIRIN 81MG ENTERIC TABLET PO SCH (10:19)
[2022-07-01] MEDS: VITAMIN D 1,000 INTERNATIONAL UNITS TABLET PO SCH (10:19)
[2022-07-01] MEDS: OMEPRAZOLE 20MG CAP PO SCH (10:19)
[2022-07-01] MEDS: ISOSORBIDE DIN. (ISORDIL) 30 MG TAB PO SCH ×3 (10:20→20:59)
[2022-07-01] MEDS: ACETAMINOPHEN TAB 650MG DOSE (2X325MG) PO PRN (13:49)
[2022-07-01] MEDS: SIMVASTATIN 20 MG TAB PO SCH (17:29)
[2022-07-01] MEDS: ATENOLOL 12.5MG PER 1/2 TABLET PO SCH (21:00)
[2022-07-01 21:02] VITALS: BP 102/46
[2022-07-01 21:08] VITALS: BP 100/48
[2022-07-02 06:00] VITALS: BP 113/45
[2022-07-02] MEDS: HEPARIN SOD (PORCINE) 5000UNITS/ML 1ML VIAL/SYRINGE SC SCH ×3 (06:00→20:35)
[2022-07-02] MEDS: VITAMIN D 1,000 INTERNATIONAL UNITS TABLET PO SCH (09:45)
[2022-07-02] MEDS: ISOSORBIDE DIN. (ISORDIL) 30 MG TAB PO SCH ×3 (09:45→20:34)
[2022-07-02] MEDS: OMEPRAZOLE 20MG CAP PO SCH (09:46)
[2022-07-02] MEDS: ASPIRIN 81MG ENTERIC TABLET PO SCH (09:46)
[2022-07-02] MEDS: SIMVASTATIN 20 MG TAB PO SCH (17:14)
[2022-07-02] MEDS: ATENOLOL 12.5MG PER 1/2 TABLET PO SCH (20:34)
[2022-07-03] MEDS: HEPARIN SOD (PORCINE) 5000UNITS/ML 1ML VIAL/SYRINGE SC SCH (05:38)
[2022-07-03 06:30] VITALS: BP 115/51
[2022-07-03] MEDS ORDERED: ASPI81TAEC PO (08:27)
[2022-07-03] MEDS ORDERED: AMLO1TAB25 PO (08:27)
[2022-07-03] MEDS ORDERED: LISI20TA33 PO (08:27)
[2022-07-03] MEDS: VITAMIN D 1,000 INTERNATIONAL UNITS TABLET PO SCH (08:56)
[2022-07-03 08:57] VITALS: BP 147/65
[2022-07-03] MEDS: ASPIRIN 81MG ENTERIC TABLET PO SCH (08:57)
[2022-07-03] MEDS: OMEPRAZOLE 20MG CAP PO SCH (08:57)
[2022-07-03] MEDS: ACETAMINOPHEN TAB 650MG DOSE (2X325MG) PO PRN (08:57)
[2022-07-03] MEDS: ISOSORBIDE DIN. (ISORDIL) 30 MG TAB PO SCH (08:57)
== END 2022-07-03 10:16 ==
LOC: EDBD 08:36 → M ED 08:36 → M PCU 08:37 → M ED INP 08:37 → ENRESERV 14:49 → M PCU 16:18 → M MSPAV 06-22 15:40
PROVIDERS: ADMIT Internal Medicine; ATTEND Internal Medicine
DX: R55 Syncope and collapse (principal); I16.0 Hypertensive urgency; R53.1 Weakness; R26.81 Unsteadiness on feet; R53.81 Other malaise; I25.10 Atherosclerotic heart disease of native coronary artery without angina pectoris; I10 Essential (primary) hypertension; E78.5 Hyperlipidemia, unspecified; K21.9 Gastro-esophageal reflux disease without esophagitis; Z91.81 History of falling; Z79.82 Long term (current) use of aspirin; Z79.899 Other long term (current) drug therapy; S30.810A Abrasion of lower back and pelvis, initial encounter; Y92.89 Other specified places as the place of occurrence of the external cause; Y93.9 Activity, unspecified; Y99.9 Unspecified external cause status
CPT/HCPCS: 36415; 70450; 70551; 71045; 72125; 73030; 80048; 80053; 80076; 81001; 82550; 82553; 83605; 83690; 83735; 84484; 85025; 85610; 85730; 87040; 87486; 87581; 87633; 87635; 87798; 93005; 93041; 96372; 96374; 97161; 97165; 97530; 97535; 99284; G0378; J0360; J2405